=== PATIENT | male | born 1990 | race Hispanic/Latino ===

== ENCOUNTER 2018-07-17 13:14 | Emergency (ER) | payer OTHER ==
--- NOTE | 2018-07-17 14:12 | EDPHYS ---
Physician Documentation [facility] Name: Andrew Kamara Age: 28 yrs Sex: Male : 1990 Arrival Date: 07/17/2018 Time: 13:24 Bed 27 Private MD: ED Physician Nicholas Reddy HPI: 07/17 14:06 This 28 yrs old Male presents to ER via Law Enforcement with complaints of AMS.rn 14:06 The patient presents with confusion. Onset: The symptoms/episode began/occurred at an rn unknown time. Possible causes: drug use, unknown. Current symptoms: In the emergency department the patient's symptoms have resolved. It is unknown whether or not the patient has had similar symptoms in the past. Sent from intermediate/alf for AMS, per report from alf, patient was not acting normal, they think got into drugs or something, and now back to baseline. Patient denies drug use, denies trauma/head injury, vomiting/diarrhea/fever/neck pain. Feels fine right now. Denies focal neuro complaints. . Historical: - Allergies: 13:38 No Known Allergies; tl3 - Home Meds: 13:38 None [Active]; tl3 - PMHx: 13:38 Drug Use; tl3 - Immunization history:: Adult Immunizations up to date. - Social history:: Smoking status: unknown. - Ebola Screening: : No symptoms or risks identified at this time. - Family history:: not pertinent. - Hospitalizations: : No recent hospitalization is reported. ROS: 14:06 Constitutional: Negative for fever, chills, and weight loss, Eyes: Negative for injury, rn pain, redness, and discharge, Neck: Negative for injury, pain, and swelling, Cardiovascular: Negative for chest pain, palpitations, and edema, Respiratory: Negative for shortness of breath, cough, wheezing, and pleuritic chest pain, Abdomen/GI: Negative for abdominal pain, nausea, vomiting, diarrhea, and constipation, MS/Extremity: Negative for injury and deformity, Skin: Negative for injury, rash, and discoloration, Neuro: Negative for headache, weakness, numbness, tingling, and seizure. Exam: 14:06 Constitutional: This is a well developed, well nourished patient who is awake, alert, rn and in no acute distress. Head/Face: Normocephalic, atraumatic. Eyes: Pupils equal round and reactive to light, extra-ocular motions intact. Lids and lashes normal. Conjunctiva and sclera are non-icteric and not injected. Cornea within normal limits. Periorbital areas with no swelling, redness, or edema. ENT: MMM Neck: Trachea midline, no thyromegaly or masses palpated, and no cervical lymphadenopathy. Supple, full range of motion without nuchal rigidity, or vertebral point tenderness. No Meningismus. Cardiovascular: Regular rate and rhythm. No pulse deficits. Respiratory: Lungs have equal breath sounds bilaterally, clear to auscultation. No increased work of breathing, no retractions or nasal flaring. Abdomen/GI: soft, non-tender Skin: Warm, dry with normal turgor. Normal color with no rashes, no lesions, and no evidence of cellulitis. MS/ Extremity: Pulses equal, no cyanosis. Neurovascular intact. Full, normal range of motion. Equal circumference. Neuro: Awake and alert, GCS 15, oriented to person, place, time, and situation. Cranial nerves II-XII grossly intact. Motor strength 5/5 in all extremities. Sensory grossly intact. Cerebellar exam normal. Vital Signs: 13:30 BP 117 / 94; Pulse 75; Resp 18; Temp 98.2; Pulse Ox 100% ; Weight 74.84 kg; Height 5 tl3 ft. 8 in. (172.72 cm); 14:20 BP 123 / 91; Pulse 79; Resp 18; Pulse Ox 100% on R/A; tl3 13:30 Body Mass Index 25.09 (74.84 kg, 172.72 cm) tl3 MDM: 13:26 Patient medically screened. rn 14:06 Differential Diagnosis: overdose, volume depletion. Data reviewed: vital signs, nurses rn notes, and as a result, I will discharge patient. Counseling: I had a detailed discussion with the patient and/or guardian regarding: the historical points, exam findings, and any diagnostic results supporting the discharge/admit diagnosis, the need for outpatient follow up, to return to the emergency department if symptoms worsen or persist or if there are any questions or concerns that arise at home. Response to treatment: the patient's condition has returned to base line, the patient is now symptom free, and as a result, I will discharge patient. ED course: Pt asymptomatic, is back to baseline, normal vitals, normal neuro exam, no signs of intoxication at this moment, will dc back to alf as drug screen not emergent. . Administered Medications: No medications were administered Disposition: 07/17/18 14:11 Discharged to Home. Impression: Encounter for general adult medical examination without abnormal findings. - Condition is Stable. - Medication Reconciliation Form, Thank You Letter, Antibiotic Education, Prescription Opioid Use form. - Follow up: Private Physician; When: As needed; Reason: Recheck today's complaints, Re-evaluation by your physician. - Problem is new. - Symptoms have improved. Signatures: Nicholas Reddy MD MD rn Lowrey, Tammy, RN RN tl3 Corrections: (The following items were deleted from the chart) 14:21 14:11 07/17/2018 14:11 Discharged to Home. Impression: Encounter for general adult tl3 medical examination without abnormal findings. Condition is Stable. Forms are Medication Reconciliation Form, Thank You Letter, Antibiotic Education, Prescription Opioid Use. Follow up: Private Physician; When: As needed; Reason: Recheck today's complaints, Re-evaluation by your physician. Problem is new. Symptoms have improved. rn
--- NOTE | 2018-07-17 14:12 | ER ---
Nurse's Notes [facility] Name: Andrew Kamara Age: 28 yrs Sex: Male : 1990 Arrival Date: 07/17/2018 Time: 13:24 Bed 27 Private MD: Diagnosis: Encounter for general adult medical examination without abnormal findings Presentation: 07/17 13:31 Presenting complaint: Patient states: brought here by law enforcement for evaluation tl3 for strange behavior, nurse at the facility state that he had altered behavior and feel like he had ingested some substance. Transition of care: patient was not received from another setting of care. Onset of symptoms was July 17, 2018. Risk Assessment: Do you want to hurt yourself or someone else? Patient reports no desire to harm self or others. Initial Sepsis Screen: Does the patient meet any 2 criteria? No. Patient's initial sepsis screen is negative. Does the patient have a suspected source of infection? No. Patient's initial sepsis screen is negative. Care prior to arrival: None. 13:31 Method Of Arrival: Law Enforcement: Heather BOND tl3 13:31 Acuity: DOMINIQUE 3 tl3 Triage Assessment: 13:38 General: Appears in no apparent distress. comfortable, well groomed, well developed, tl3 well nourished, Behavior is cooperative, flat. Pain: Denies pain. EENT: No deficits noted. Neuro: Level of Consciousness is awake, alert, obeys commands. Cardiovascular: Patient's skin is warm and dry. Respiratory: Airway is patent Respiratory effort is even, unlabored, Respiratory pattern is regular, symmetrical, Breath sounds are clear bilaterally. GI: No signs and/or symptoms were reported involving the gastrointestinal system. Historical: - Allergies: 13:38 No Known Allergies; tl3 - Home Meds: 13:38 None [Active]; tl3 - PMHx: 13:38 Drug Use; tl3 - Immunization history:: Adult Immunizations up to date. - Social history:: Smoking status: unknown. - Ebola Screening: : No symptoms or risks identified at this time. - Family history:: not pertinent. - Hospitalizations: : No recent hospitalization is reported. Screenin:40 Abuse screen: Denies threats or abuse. Nutritional screening: No deficits noted. tl3 Tuberculosis screening: No symptoms or risk factors identified. Fall Risk None identified. Assessment: 13:40 Reassessment: No changes from previously documented assessment. tl3 14:20 Reassessment: Patient appears in no apparent distress at this time. No changes from tl3 previously documented assessment. Patient and/or family updated on plan of care and expected duration. Pain level reassessed. Patient is alert, oriented x 3, equal unlabored respirations, skin warm/dry/pink. Vital Signs: 13:30 BP 117 / 94; Pulse 75; Resp 18; Temp 98.2; Pulse Ox 100% ; Weight 74.84 kg; Height 5 tl3 ft. 8 in. (172.72 cm); 14:20 BP 123 / 91; Pulse 79; Resp 18; Pulse Ox 100% on R/A; tl3 13:30 Body Mass Index 25.09 (74.84 kg, 172.72 cm) tl3 ED Course: 13:24 Patient arrived in ED. iw 13:26 Nicholas Reddy MD is Attending Physician. rn 13:30 Lidia Marte RN is Primary Nurse. tl3 13:37 Triage completed. tl3 13:38 Arm band placed on right wrist. tl3 13:40 Patient has correct armband on for positive identification. Bed in low position. Side tl3 rails up X 1. Security at bedside. Pulse ox on. NIBP on. 13:40 No provider procedures requiring assistance completed. tl3 14:20 Patient did not have IV access during this emergency room visit. tl3 Administered Medications: No medications were administered Outcome: 14:11 Discharge ordered by . rn 14:20 Discharged to home ambulatory. tl3 14:20 Condition: stable 14:20 Discharge instructions given to police, Instructed on discharge instructions, follow up and referral plans. Demonstrated understanding of instructions, follow-up care. 14:21 Patient left the ED. tl3 Signatures: Eleanor Qureshi RN RN Nichoals Reddy MD MD rn Lowrey, Tammy, RN RN tl3
== END 2018-07-17 14:21 | disposition home or self-care (01) ==
LOC: ER 13:14
DX: Z04.89 Encounter for examination and observation for other specified reasons (principal); R41.82 Altered mental status, unspecified
CPT/HCPCS: 99284